=== PATIENT | female | born 1945 | race Caucasian/White ===

== ENCOUNTER 2018-12-27 23:19 | Emergency (ER) | payer OTHER ==
[~2018-12-27] VITALS: Ht 157.5 cm; Wt 86.2 kg
[2018-12-27] MEDS ORDERED: METFORMIN HCL850 MG (23:39)
[2018-12-27] MEDS ORDERED: ATORVASTATIN CA20 MG (23:40)
[2018-12-27] MEDS ORDERED: DILTIAZEM 24HR180 MG (23:40)
[2018-12-27] MEDS ORDERED: LOSARTAN-HCTZ1 EAC2 (23:40)
== END 2018-12-28 01:24 | disposition left against medical advice (07) ==
LOC: ER 23:19
DX: Z53.20 Procedure and treatment not carried out because of patient's decision for unspecified reasons (principal)

== ENCOUNTER 2019-08-18 13:54 | Inpatient (IN) | payer OTHER ==
[~2019-08-18] VITALS: Ht 157.5 cm; Wt 81.6 kg
[~2019-08-18 13:54] MED LIST: ATORVASTATIN CA20 MG; DILTIAZEM 24HR180 MG; LOSARTAN-HCTZ1 EAC2; METFORMIN HCL850 MG
[2019-08-21] MEDS ORDERED: GABAPENTIN300 MG PO (09:06)
[2019-08-21] MEDS ORDERED: INTEGRA F CAPS1 EACH PO (09:06)
== END 2019-08-21 17:26 | disposition home or self-care (01) | DRG 470 ==
LOC: ER 13:54 → SURH 18:54
PROVIDERS: ADMIT Orthopaedic Surgery
PROC: 0SRS0JZ Replacement of Left Hip Joint, Femoral Surface with Synthetic Substitute, Open Approach (ICD-10-PCS; principal; 2019-08-19 09:45)
DX: S72.035A Nondisplaced midcervical fracture of left femur, initial encounter for closed fracture (principal); W01.198A Fall on same level from slipping, tripping and stumbling with subsequent striking against other object, initial encounter; Y93.11 Activity, swimming; Y92.096 Garden or yard of other non-institutional residence as the place of occurrence of the external cause; Y99.8 Other external cause status